=== PATIENT | female | born 1975 | race Caucasian/White ===

== ENCOUNTER 2016-04-15 09:13 | Day surgery (SDC) | payer OTHER ==
[~2016-04-15] VITALS: Ht 162.6 cm; Wt 66.5 kg
[2016-04-15 09:42] VITALS: BP 127/88; PULSE 65; TEMP 97.9
[2016-04-15] MEDS ORDERED: MICROGESTIN 1/21 TAB PO (09:57)
[2016-04-15] MEDS ORDERED: NEXIUM 40MG40 MG PO (09:58)
[2016-04-15] MEDS ORDERED: SINGULAIR 110 MG/TAB PO (09:59)
[2016-04-15] MEDS ORDERED: FLONASE NASAL S16 GM NS (09:59)
[2016-04-15] MEDS ORDERED: ZYRTEC 10MG10 MG PO (10:00)
[2016-04-15] MEDS ORDERED: PROBIOTIC FORMU1 CAP PO (10:03)
[2016-04-15] MEDS ORDERED: WOMEN'S DAILY F1 TAB PO (10:04)
[2016-04-15] MEDS ORDERED: VITAFUSION PO (10:05)
[2016-04-15 11:00] VITALS: BP 128/80; PULSE 65; TEMP 97.8
[2016-04-15 11:15] VITALS: BP 126/82; PULSE 61
[2016-04-15 11:30] VITALS: BP 123/81; PULSE 62
== END 2016-04-15 11:35 | disposition home or self-care (01) ==
LOC: SDCO 09:13
DX: K21.0 Gastro-esophageal reflux disease with esophagitis (principal); K22.2 Esophageal obstruction
CPT/HCPCS: J2250; J3010; J7030